=== PATIENT | female | born 1990 | race African-American/Black ===

== ENCOUNTER 2022-07-07 03:14 | Emergency (ER) | payer BC, OTHER ==
[~2022-07-07] VITALS: Ht 165.1 cm; Wt 60.0 kg
[2022-07-07] MEDS ORDERED: ONDANSETRON HCL 4MG/2ML INJ IM STA (03:50)
[2022-07-07] MEDS ORDERED: HYDROCODONE/ACETAMINOPHEN 5/325MG TABLET PO STA (03:50)
[2022-07-07 04:46] VITALS: BP 124/94
[2022-07-07] MEDS ORDERED: IBUP-2029 PO (06:58)
[2022-07-07] MEDS ORDERED: ONDANSETRON 4MG ODT PO STA (07:00)
== END 2022-07-07 07:31 ==
LOC: ER 03:36
DX: S00.83XA Contusion of other part of head, initial encounter (principal); S20.219A Contusion of unspecified front wall of thorax, initial encounter; Y08.89XA Assault by other specified means, initial encounter; Y93.89 Activity, other specified; Y92.89 Other specified places as the place of occurrence of the external cause; Y99.8 Other external cause status; J45.909 Unspecified asthma, uncomplicated
CPT/HCPCS: 70450; 70486; 71045; 81025; 96372; 99285; J2405; Q0162; Z7610

== ENCOUNTER 2022-07-17 14:36 | Emergency (ER) | payer BC, OTHER ==
[~2022-07-17] VITALS: Ht 170.2 cm; Wt 81.8 kg
[~2022-07-17 14:36] MED LIST: IBUP-2029 PO
[2022-07-17 14:47] VITALS: BP 109/79
[2022-07-17] MEDS ORDERED: ACET-2708 MT (16:40)
[2022-07-17] MEDS ORDERED: CEFTRIAXONE SODIUM 500 MG/VIAL IM ONE (16:45)
[2022-07-17] MEDS ORDERED: AZITHROMYCIN 500 MG TABLET PO ONE (16:45)
[2022-07-17 17:18] LABS: CLARITY URINE CLOUDY (CLEAR); COLOR URINE DARK YELLOW (YELLOW); KETONES URINE 1+ (NEGATIVE); LEUKOCYTE ESTERASE URINE NEGATIVE (NEGATIVE); NITRITE URINE NEGATIVE (NEGATIVE); OCCULT BLOOD URINE NEGATIVE (NEGATIVE); PROTEIN URINE 1+ (NEGATIVE); SPECIFIC GRAVITY URINE 1.037 (1.005-1.030)
== END 2022-07-17 17:50 | disposition home or self-care (01) ==
LOC: ER 14:50
DX: S82.831A Other fracture of upper and lower end of right fibula, initial encounter for closed fracture (principal); N72 Inflammatory disease of cervix uteri; J45.909 Unspecified asthma, uncomplicated; W19.XXXA Unspecified fall, initial encounter; Y93.89 Activity, other specified; Y92.89 Other specified places as the place of occurrence of the external cause; Y99.8 Other external cause status
CPT/HCPCS: 29515; 73610; 73630; 81003; 81025; 96372; 99284; J0696; Z7610